=== PATIENT | female | born 1985 | race Caucasian/White ===

== ENCOUNTER 2019-06-06 07:46 | Emergency (ER) | payer BC ==
[2019-06-06 08:08] VITALS: BP 106/76
--- NOTE | 2019-06-06 09:25 | UC ---
Lower Extremity/Ankle HPI - HPI Summary HPI Summary: SLIPPED ON THE STAIRS THIS MORNING. DENIES TWISTING HER ANKLE BUT STATES HER LEFT FOOT "FOLDED IN HALF ". ARRIVES WITH PAIN AND A DISCRETE SWELLING ON THE LATERAL SIDE OF HER LEFT FOOT. - History of Current Complaint Chief Complaint: UCLowerExtremity Stated Complaint: ANKLE INJURY Time Seen by Provider: 06/06/19 08:46 Hx Obtained From: Patient Hx Last Menstrual Period: BC Onset/Duration: Sudden Onset, Lasting Hours, Still Present Severity Initially: Moderate Severity Currently: Moderate Pain Intensity: 8 Pain Scale Used: 0-10 Numeric Aggravating Factor(s): Standing, Ambulation Able to Bear Weight: Yes - WITH PAIN - Allergies/Home Medications Allergies/Adverse Reactions: Allergies Allergy/AdvReac Type Severity Reaction Status Date / Time No Known Allergies Allergy Verified 06/06/19 08:08 Home Medications: Home Medications Microgestin 120 mcg PO DAILY 06/06/19 [History Confirmed 06/06/19] NK [No Home Medications Reported] 06/06/19 [History Confirmed 06/06/19] PMH/Surg Hx/FS Hx/Imm Hx Previously Healthy: Yes - Surgical History Surgical History: Yes Surgery Procedure, Year, and Place: ACL repair - Family History Known Family History: Positive: Non-Contributory - Social History Alcohol Use: Occasionally Substance Use Type: None Smoking Status (MU): Never Smoked Tobacco Review of Systems All Other Systems Reviewed And Are Negative: Yes Constitutional: Positive: Negative Skin: Positive: Negative Respiratory: Positive: Negative Cardiovascular: Positive: Negative Gastrointestinal: Positive: Negative Musculoskeletal: Positive: Arthralgia, Decreased ROM, Edema Physical Exam Triage Information Reviewed: Yes Appearance: Well-Appearing, No Pain Distress, Well-Nourished Vital Signs: Initial Vital Signs Temp 98.8 F 06/06/19 08:02 Pulse 77 06/06/19 08:02 Resp 12 06/06/19 08:02 BP 106/76 06/06/19 08:02 Pulse Ox 99 06/06/19 08:02 Vital Signs Reviewed: Yes Eyes: Positive: Conjunctiva Clear ENT: Positive: Hearing grossly normal Neck: Positive: Supple Respiratory: Positive: No respiratory distress, No accessory muscle use Cardiovascular: Positive: Pulses Normal Abdomen Description: Positive: Soft Musculoskeletal: Positive: ROM Limited @ - LEFT FOOT, Edema @ - DISCRETE FIRM CYST-LIKE SWELLING LEFT DORSOLATERAL FOOT Neurological: Positive: Alert Psychological: Positive: Age Appropriate Behavior Skin: Negative: Rashes Diagnostics - Radiology LEFT FOOT XRAYS Radiology Interpretation Completed By: Radiologist Summary of Radiographic Findings: QUESTIONABLE OS PERONEUM VERSUS CALCANEAL FRACTURE. GIVEN PATIENT'S HISTORY AND PHYSICAL EXAM - FRACTURE IS FAVORED Lower Extremity Course/Dx - Course Course Of Treatment: SMALL AVULSION FRACTURE OFF THE DISTAL END OF THE CALCANEUS WHERE IT ABUTS THE CUBOID. DISCUSSED WITH RADIOLOGY PATIENT'S MECHANISM OF INJURY AND DISCRETE AREA OF SWELLING OVERLYING THE AREA IN QUESTION AND IT WAS AGREED THAT POSSIBILITY OF FRACTURE IS MORE LIKELY THAN OS PERONEUM. RODOLFO WRAP AND CAME BOOT APPLIED BY RN. PATIENT WILL CALL ORTHOPEDICS FOR FOLLOW-UP APPOINTMENT IN THE NEXT 1-2 WEEKS. - Differential Dx/Diagnosis Provider Diagnosis: Foot fracture, left Discharge ED - Sign-Out/Discharge Documenting (check all that apply): Patient Departure All imaging exams completed and their final reports reviewed: Yes - Discharge Plan Condition: Stable Disposition: HOME Patient Education Materials: Foot Fracture in Adults (ED) Forms: *Work Release Referrals: Jeny Encarnacion MD [Medical Doctor] - 2 Weeks Additional Instructions: X-RAY TODAY SUGGESTS A SMALL FRACTURE. RDOOLFO WRAP AND CAM BOOT TO HELP WITH SUPPORT, COMPRESSION AND MOBILITY. USE YOUR CRUTCHES AT HOME IF NEEDED. REST, ICE, ELEVATE. CALL ORTHOPEDICS TODAY FOR FOLLOW-UP APPOINTMENT IN 10-14 DAYS. OTC MEDICATIONS NEEDED FOR DISCOMFORT. - Billing Disposition and Condition Condition: STABLE Disposition: Home
== END 2019-06-06 09:55 | disposition home or self-care (01) ==
LOC: UCEAST 07:46
DX: S92.002A Unspecified fracture of left calcaneus, initial encounter for closed fracture (principal); W10.9XXA Fall (on) (from) unspecified stairs and steps, initial encounter; Y92.9 Unspecified place or not applicable
CPT/HCPCS: 99203; G0463